=== PATIENT | male | born 1950 | race Caucasian/White ===

== ENCOUNTER 2019-12-25 10:43 | Emergency (ER) | payer OTHER ==
[~2019-12-25] VITALS: Ht 167.6 cm; Wt 72.6 kg
[2019-12-25 10:46] VITALS: BP 153/75
--- NOTE | 2019-12-25 10:49 | NUR ---
EMT AT BEDSIDE DOING EKG
--- NOTE | 2019-12-25 10:55 | NUR ---
69YO MALE BIBA CO OF CHEST PAIN. PT TOOK 81MG ASA TODAY WELL ONE SPRAY OF NITRO AT THE START OF CHEST PAINS TODAY. PT HAS A HX OF CABG4 TWO AND A HALF YEARS AGO. PT IS TAKING BLOOD THINNERS. PT NOW REPORTS PAIN IS MORE EPIGASTRIC WITH NO RADIATION. 12 LEAD EKG DONE. PT IS RESTING COMFORTABLY AT THIS TIME.
[2019-12-25] MEDS ORDERED: ALUMINUM HYD/MAG/SIMETHICONE 30 ML UDC PO ONE (11:15)
[2019-12-25] MEDS ORDERED: FAMOTIDINE 20 MG TAB PO ONE (11:15)
--- NOTE | 2019-12-25 11:32 | NUR ---
MEDS GIVEN PER MD ORDERS
--- NOTE | 2019-12-25 11:33 | NUR ---
PT STARTED ON 2L OF O2 VIA NASAL CANNULA
--- NOTE | 2019-12-25 11:54 | NUR ---
LABS DRAWN AND LAB PICKED THEM UP FROM ED
[2019-12-25 11:59] LABS: BASOPHILS # (AUTO) 0.1 K/uL (0.00-0.22); BASOPHILS % (AUTO) 0.7 % (0.0-2.0); EOSINOPHILS % (AUTO) 0.2 % (0.0-4.0); HEMATOCRIT 43.9 % (36-52); HEMOGLOBIN 14.5 g/dL (12.0-18.0); LYMPHOCYTES # (AUTO) 0.9 K/uL (2.0-11.5); LYMPHOCYTES % (AUTO) 7.4 % (20.5-51.1); MEAN CORPUSCULAR HEMOGLOBIN 30 pg (27-31); MEAN CORPUSCULAR HGB CONC 33 g/dL (33-37); MONOCYTES # (AUTO) 0.5 K/uL (0.8-1.0); MONOCYTES % (AUTO) 4.5 % (1.7-9.3); NEUTROPHILS # (AUTO) 10.4 K/uL (1.8-7.7); NEUTROPHILS % (AUTO) 87.2 % (42.2-75.2); PLATELET COUNT (AUTO) 180 K/uL (140-450); RED BLOOD CELL COUNT(AUTO) 4.83 MIL/uL (4.20-6.10); RED CELL DISTRIBUTION WIDTH 13.6 % (11.6-13.7); WHITE BLOOD COUNT (AUTO) 11.9 K/uL (4.8-10.8)
[2019-12-25 12:09] LABS: ANION GAP 10.5 (8-16); CARBON DIOXIDE 31.1 mmol/L (21-32); CREATININE 1.4 mg/dL (0.7-1.3); POTASSIUM 4.6 mmol/L (3.5-5.1)
[2019-12-25 12:24] LABS: ALBUMIN 4.1 g/dL (3.4-5.0)
--- NOTE | 2019-12-25 13:52 | NUR ---
LAB AT BEDSIDE TO DRAW REPEAT TROPONIN
--- NOTE | 2019-12-25 15:13 | NUR ---
IV removed, catheter intact and site benign. Applied folded 4x4 gauze and tape to stop bleeding.
[2019-12-25 15:17] VITALS: BP 153/80
--- NOTE | 2019-12-25 15:18 | NUR ---
Patient discharged with v/s stable. Written and verbal after care instructions given and explained. Patient verbalized understanding. Ambulatory with steady gait. All questions addressed prior to discharge. Advised to follow up with PMD.
== END 2019-12-25 15:18 | disposition home or self-care (01) ==
LOC: MED 10:43
DX: R07.9 Chest pain, unspecified (principal); K29.70 Gastritis, unspecified, without bleeding; I21.9 Acute myocardial infarction, unspecified; I10 Essential (primary) hypertension; E78.00 Pure hypercholesterolemia, unspecified
CPT/HCPCS: 36415; 71045; 80053; 83690; 83880; 84484; 85025; 93005; 99284; Q0092